=== PATIENT | male | born 1965 | race African-American/Black ===

== ENCOUNTER → 2018-12-16 | Outpatient (CLI) | payer OTHER ==
[2018-12-01 07:00] VITALS: BP 148/84
[~2018-12-16] MED LIST: ASPI-612 PO; ATOR20TA58 PO
--- NOTE | 2018-12-16 13:07 | RAD ---
CLINICAL HISTORY: Lung nodule INDICATION: Restaging. COMPARISON: None available. TECHNIQUE: Location of scan: [facility] Radiopharmaceutical Dose: 16.07 mCi F-18 FDG intravenous Blood glucose at time of study: 115 FDG uptake time = 60 minutes. Images were obtained from the mid head to the mid thighs. A low dose, noncontrast CT study was performed for the purpose of attenuation correction and anatomic localization. FINDINGS: Head and Neck: Physiologic activity is seen within the head and neck. Chest: A 1.4 cm left upper lobe lung nodule is seen with an SUV max 1.3. The right paratracheal lymph node posterior to the right subclavian artery has an SUV max of 1.65. Abdomen and Pelvis: FDG max of the right adrenal nodule measures 1.87. Physiologic activity seen within bowel, renal collecting systems and solid organs including liver. Skeletal: Physiologic activity is seen within the osseous structures. Reference SUV Values: Mediastinal SUV Max: 2.98 Liver SUV Max: 3.29 IMPRESSION: 1. The left upper lobe lung nodule demonstrates low level FDG uptake. Continued CT follow-up is recommended to establish stability as a non-FDG avid lung mass is not excluded. 2. Right adrenal nodule and right paratracheal lymph node demonstrated physiologic activity. Radiation Dosimetry: The radiopharmaceutical used for this exam delivers approximately 0.7 mSv/mCi (70 mRem/mCi) Source: ICRP Publication 106
== END | disposition home or self-care (01) ==
LOC: PETSC 08:48
PROVIDERS: ATTEND Internal Medicine Critical Care Medicine
DX: R91.1 Solitary pulmonary nodule (principal)
CPT/HCPCS: 78815; A9552